=== PATIENT | male | born 1980 | race Caucasian/White ===

== ENCOUNTER → 2020-02-20 | Emergency (ER) | payer OTHER ==
[~2020-02-20] VITALS: Ht 160 cm; Wt 77.0 kg
[~2020-02-20] MED LIST: ACETAMINOPHEN 325MG TABLET PO ONE; BACITRACIN ZINC OINT UDPKT TOP ONE; LIDOCAINE HCL/PF 1% 10 MG/ML 5ML VIAL IJ ONE; TETANUS, DIPHTHERIA, PERTUSSIS VAC/PF 0.5ML (>7YR OLD) IM ONE
[2020-02-20 02:42] VITALS: BP 150/100
== END ==
LOC: ER 02:57
DX: R51 Headache (principal); Z53.21 Procedure and treatment not carried out due to patient leaving prior to being seen by health care provider
CPT/HCPCS: J3490